=== PATIENT | male | born 1950 | race Caucasian/White ===

== ENCOUNTER 2017-11-16 11:10 | Emergency (ER) | payer MEDICARE, BC ==
[2017-11-16 11:33] VITALS: BP 108/76
--- NOTE | 2017-11-16 11:34 | UC ---
Respiratory Complaint HPI - HPI Summary HPI Summary: PT presents with dry cough and chest congestion for the last 4 days. He tells me that at night his cough is productive with yellow sputum, but during the day is dry and "annoying". Has not been taking anything OTC. Denies fever, chills, sore throat, SOB, chest pain. - History of Current Complaint Chief Complaint: UCRespiratory Stated Complaint: UPPER RESPIRATORY Time Seen by Provider: 11/16/17 11:33 Hx Obtained From: Patient Onset/Duration: Gradual Onset Severity Currently: None Pain Intensity: 0 Character: Cough: Nonproductive - Allergies/Home Medications Allergies/Adverse Reactions: Allergies Allergy/AdvReac Type Severity Reaction Status Date / Time No Known Allergies Allergy Verified 11/16/17 11:29 Home Medications: Home Medications Aspirin 81 mg CHEW TAB* [Aspirin Low Dose TAB*] 81 mg PO EVERY OTHER DAY [History Confirmed 11/16/17] Cholecalciferol TAB* [Vitamin D TAB*] 1,000 unit PO DAILY 11/16/17 [History Confirmed 11/16/17] [place]-3 Fatty Acids/Fish Oil [Fish Oil 1,000 mg Capsule] 1 each PO DAILY [History Confirmed 11/16/17] PMH/Surg Hx/FS Hx/Imm Hx Endocrine History: Dyslipidemia Cardiovascular History: Other - Atrial flutter Other Cardiovascular History: Atrial flutter - Surgical History Surgical History: Yes Surgery Procedure, Year, and Place: ronn. bunionectomy. hernia. cyst removal from thumb. Cardiac ablation x3 - Family History Known Family History: Positive: Cardiac Disease - Social History Occupation: Retired Lives: With Family Alcohol Use: Occasionally Substance Use Type: None Smoking Status (MU): Never Smoked Tobacco Review of Systems Constitutional: Negative Skin: Negative Eyes: Negative ENT: Negative Respiratory: Cough Cardiovascular: Negative Gastrointestinal: Negative Musculoskeletal: Negative Neurological: Negative Psychological: Negative All Other Systems Reviewed And Are Negative: Yes Physical Exam - Summary Physical Exam Summary: GENERAL: NAD. WDWN. No pain distress. SKIN: No rashes, sores, ulcers, masses, lesions. HEENT: Head: AT/NC Eyes: Conjunctiva clear without inflammation or discharge. Ears: Hearing grossly normal. TMs intact, no bulging, erythema, or edema. Nose: Nasal mucosa pink and moist. NTTP maxillary and frontal sinus. Throat: Posterior oropharynx without exudates, erythema, or tonsillar enlargement. Uvula midline. NECK: Supple. Nontender. No lymphadenopathy. CHEST: Mild wheezing throughout. No r/r. No accessory muscle use. Breathing comfortably and in no distress. CV: RRR. Without m/r/g. Pulses intact. Brisk cap refill. NEURO: Alert. CN II-XII grossly intact. PSYCH: Age appropriate behavior. Triage Information Reviewed: Yes Vital Signs: Initial Vital Signs Temp 98 F 11/16/17 11:28 Pulse 76 11/16/17 11:28 Resp 18 11/16/17 11:28 BP 108/76 11/16/17 11:28 Pulse Ox 98 11/16/17 11:28 Diagnostic Evaluation - Laboratory O2 Sat by Pulse Oximetry: 98 Respiratory Course/Dx - Course Course Of Treatment: He is requesting an antibiotic. I had a long discussion with him that his symptoms are likely viral and an antibiotic would not be beneficial at this time - he still would like one. - Differential Dx/Diagnosis Provider Diagnoses: Bronchitis Discharge - Sign-Out/Discharge Documenting (check all that apply): Discharge/Admit/Transfer - Discharge Plan Condition: Stable Disposition: HOME Prescriptions: Azithromycin TAB* [Zithromax TAB (Z-TAMANNA) 250 mg #6 tabs] 2 tab PO .TODAY, THEN 1 DAILY #1 tamanna Benzonatate CAP* [Tessalon 100 MG CAP*] 100 mg PO TID PRN #15 cap PRN Reason: Cough Patient Education Materials: Acute Bronchitis (ED) Referrals: Valeriy Zacarias MD [Primary Care Provider] - Additional Instructions: If you develop a fever, shortness of breath, chest pain, new or worsening symptoms - please call your PCP or go to the ED. - Billing Disposition and Condition Condition: STABLE Disposition: HOME
== END 2017-11-16 11:45 | disposition home or self-care (01) ==
LOC: UCCORT 11:10
DX: J40 Bronchitis, not specified as acute or chronic (principal)
CPT/HCPCS: 99212; G0463

== ENCOUNTER 2021-10-20 06:28 | Observation (INO) ==
[~2021-10-20 06:28] MED LIST: Buffered Lidocaine 1% SYRIN 1 ml INTRADERM ONE; DiMENhydriNATE IV 50 mg/ml 1 ml VIAL IV PUSH PRN; Lactated Ringers 1000 ml BAG 1,000 ML IV SCH; Naloxone 0.4 mg VIAL 0.4 mg/ml 1 ml VIAL IV PRN
[2021-10-20] MEDS ORDERED: ceFAZolin 2 GM in NS PREMIX 2 GM/100 ML BAG IVPB ONE (06:51)
[2021-10-20] MEDS ORDERED: Propofol 10 MG/ML 20 ML BTL ONE ×2 (07:52→08:24)
[2021-10-20] MEDS ORDERED: Lidocaine 2% PF 5 ML VIAL ONE ×2 (07:52→08:18)
[2021-10-20] MEDS ORDERED: Ketamine HCL 50 mg/ml 10 ml VIAL (500 MG) ONE (07:53)
[2021-10-20] MEDS ORDERED: Dexmedetomidine 200 mcg/2 ml 2 ml VIAL (200 mcg) ONE (08:18)
[2021-10-20] MEDS ORDERED: ROPIVACAINE 5 MG/ML 30 ML BTL (0.5%) ONE (08:19)
[2021-10-20] MEDS ORDERED: Midazolam 2 mg/2 ml VIAL 1 mg/ml 2 ml VIAL (2 mg) ONE (08:19)
[2021-10-20] MEDS ORDERED: fentaNYL 250 mcg/5 ml 50 MCG/ML 5 ml VIAL (250 MCG) ONE (08:20)
[2021-10-20] MEDS ORDERED: Rocuronium 50 mg VIAL 10 mg/ml 5 ml VIAL (50 mg) ONE (08:20)
[2021-10-20] MEDS ORDERED: Ropivacaine 5 MG/ML 20 ML VIAL 0.5% (100 MG) ONE (08:46)
[2021-10-20] MEDS ORDERED: Phenylephrine 40 mcg/mL 10mL (400mcg) SYRINGE ONE (10:05)
[2021-10-20] MEDS ORDERED: EPHEDrine (Pressors) 50 MG/ML VIAL ONE (10:12)
[2021-10-20] MEDS ORDERED: Ondansetron ODT 4 mg TAB 4 MG TAB PO PRN (10:51)
[2021-10-20] MEDS ORDERED: Ondansetron 4 mg VIAL 2 MG/ML 2 ml VIAL IV PRN (10:51)
[2021-10-20] MEDS ORDERED: Morphine 2 MG/ML SYRINGE IV PRN (10:51)
[2021-10-20] MEDS ORDERED: Lactulose 30 ml UDC PO PRN (10:51)
[2021-10-20] MEDS ORDERED: diPHENhydraMINE 25 mg TAB PO PRN (10:51)
[2021-10-20] MEDS ORDERED: Magnesium Hydroxide LIQ 30 ML UDC PO PRN (10:51)
[2021-10-20] MEDS ORDERED: diPHENhydraMINE IV 50 MG/ML 1 ml VIAL (BENADRYL) IV PRN (10:51)
[2021-10-20] MEDS ORDERED: Dexamethasone IV 4 MG/ML VIAL 1 ml VIAL ONE (11:01)
[2021-10-20] MEDS ORDERED: Ondansetron 4 mg VIAL 2 MG/ML 2 ml VIAL ONE (11:01)
[2021-10-20] MEDS ORDERED: Acetaminophen IV 1 GM/100ML 100 ML IV ONE (11:02)
[2021-10-20] MEDS ORDERED: HYDROmorphone 0.5 MG/0.5 ML SYRINGE ONE (11:54)
[2021-10-20] MEDS ORDERED: fentaNYL 100 mcg/2 ml 50 MCG/ML VIAL ONE (13:00)
[2021-10-20] MEDS: fentaNYL 100 mcg/2 ml 50 MCG/ML VIAL IV PRN ×4 (13:00→13:59)
[2021-10-20] MEDS: Lactated Ringers 1000 ml BAG 1,000 ML IV SCH (14:30)
[2021-10-20] MEDS: ceFAZolin VIAL 1 GM in NS 0.9% 50 ML 50 ML IVPB SCH (18:08)
[2021-10-20] MEDS: Magnesium Hydroxide LIQ 30 ML UDC PO SCH (20:55)
[2021-10-21] MEDS: Lactated Ringers 1000 ml BAG 1,000 ML IV SCH (01:19)
[2021-10-21] MEDS: ceFAZolin VIAL 1 GM in NS 0.9% 50 ML 50 ML IVPB SCH ×2 (03:30→09:57)
[2021-10-21 06:07] LABS: Hematocrit 33 % (42-52); Hemoglobin 11.7 g/dL (14.0-18.0); Mean Platelet Volume 7.3 fL (7.4-10.4); Platelet Count 147 10^3/uL (150-450)
[2021-10-21 06:38] LABS: Potassium 3.9 mmol/L (3.5-5.0); eGFR CKD-EPI 87.8 (>60)
[2021-10-21] MEDS: Magnesium Hydroxide LIQ 30 ML UDC PO SCH (08:04)
[2021-10-21] MEDS ORDERED: Vitamin THERAPEUTIC TAB PO SCH (09:00)
[2021-10-21 10:41] VITALS: BP 109/67
== END 2021-10-21 13:00 | disposition home or self-care (01) ==
LOC: AA 06:28 → INTOOBSV 06:28 → SSU 14:10
PROVIDERS: ADMIT Orthopaedic Surgery Adult Reconstructive Orthopaedic Surgery; ATTEND Orthopaedic Surgery Adult Reconstructive Orthopaedic Surgery